=== PATIENT | female | born 1970 | race African-American/Black ===

== ENCOUNTER 2020-01-12 19:10 | Emergency (ER) | payer MEDICARE, OTHER ==
[2020-01-12] MEDS ORDERED: Lidocaine 1% w/Epinephrine 1:100K 20 ML VIAL ONE (21:38)
[2020-01-12] MEDS ORDERED: Adacel (T-DAP) 0.5 ML SYRINGE ONE (21:48)
[2020-01-12] MEDS ORDERED: HYDROcodone/Acetaminophen 10/325 mg Tablet ONE (21:48)
== END 2020-01-12 23:26 | disposition home or self-care (01) ==
LOC: ERS 19:10
DX: S51.811A Laceration without foreign body of right forearm, initial encounter (principal); F31.9 Bipolar disorder, unspecified; F42.9 Obsessive-compulsive disorder, unspecified; Z23 Encounter for immunization; W01.198A Fall on same level from slipping, tripping and stumbling with subsequent striking against other object, initial encounter
CPT/HCPCS: 12032; 90471; 90715

== ENCOUNTER 2020-01-24 04:14 | Emergency (ER) | payer MEDICARE, OTHER ==
[2020-01-24] MEDS ORDERED: HYDROcodone/Acetaminophen 5/325 mg Tablet ONE (05:22)
--- NOTE | 2020-01-24 09:11 | RAD ---
LEFT HIP TWO VIEWS: HISTORY: Fall. FINDINGS: No evidence of fracture. Mild degenerative spurring from the femoral head. IMPRESSION: No acute fracture identified. POS: [id number]
== END 2020-01-24 06:15 | disposition home or self-care (01) ==
LOC: ERS 04:14
DX: S70.02XA Contusion of left hip, initial encounter (principal); F31.9 Bipolar disorder, unspecified; W06.XXXA Fall from bed, initial encounter